=== PATIENT | female | born 1955 | race Caucasian/White ===

== ENCOUNTER → 2018-04-24 | Outpatient (CLI) | payer OTHER ==
[2016-05-12 21:09] VITALS: BP 100/68
[~2018-04-24] MED LIST: ASCO100T4 PO; ASPI-630 PO; CALC500T54 PO; CHOL200074 PO; CYAN100T PO; CYCL1DRO EACHEYE; DROS1TAB PO; LEVO0.5P MC; MULT-496 PO; OMEG500C PO; VITA100T7 PO
--- NOTE | 2018-04-24 13:05 | RAD ---
EXAM: Dual energy x-ray absorptiometry (DEXA). HISTORY: Postmenopausal female presents for osteoporosis screening. COMPARISON: None. TECHNIQUE: Dual energy x-ray absorptiometry of the lumbar spine and right hip was performed. Calculation of bone mineral density based on standard deviations above or below the expected young adult normal value (T-score) was completed. FINDINGS: The average bone mineral density in the 1st through 4th lumbar vertebrae is 1.207 g/cmxcm, corresponding with a T-score of 0.2. The average total bone mineral density in the right femoral intertrochanteric region is 0.693 g/cmxcm, corresponding with a T-score of -1.4. The bone mineral density cannulated for the total right hip corresponds with a T-score of -0.1. IMPRESSION: 1. Normal bone mineral density measured for the lumbar spine and total right hip. 2. Osteopenia measured at the right femoral intertrochanteric region. Note: Definitions established by the World Health Organization: 1. Normal: T-score is -1.0 or above. 2. Osteopenia: T-score is between -1.0 and -2.5 . 3. Osteoporosis: T-score is -2.5 or below. Electronically signed by: Jenny Mark MD (04/24/2018 1:02 PM) [place] [id number]
== END | disposition home or self-care (01) ==
LOC: DXRAD 10:41
PROVIDERS: ATTEND Nurse Practitioner Family
DX: Z13.820 Encounter for screening for osteoporosis (principal); M85.89 Other specified disorders of bone density and structure, multiple sites; Z78.0 Asymptomatic menopausal state
CPT/HCPCS: 77080

== ENCOUNTER → 2018-09-03 | Outpatient (CLI) | payer OTHER ==
[2016-05-12 21:09] VITALS: BP 100/68
--- NOTE | 2018-09-03 17:29 | RAD ---
EXAM: PA and Lateral Views of the Chest DATE: 09/03/2018 3:10 PM INDICATION: SHORTNESS OF BREATH COMPARISON: No Prior FINDINGS: The heart is not enlarged. Mediastinal and hilar contours are normal. Nodular right infrahilar patchy parenchymal opacities are seen, possibly developing consolidation or atelectasis. Radiographic follow-up to resolution is recommended. No pleural effusion or pneumothorax. IMPRESSION: 1. Nodular and patchy right infrahilar parenchymal opacities are seen, possibly developing consolidation or atelectasis. Radiographic follow-up to resolution is recommended to exclude solid mass. Electronically signed by: Erwin Echeverria MD (09/03/2018 5:25 PM) [id number]
--- NOTE | 2018-09-03 17:30 | RAD ---
EXAM: AP pelvis, AP and crosstable lateral views of the right hip DATE: 09/03/2018 12:00 AM INDICATION: RIGHT HIP PAIN WITH PELVIC PAIN COMPARISON: No Prior FINDINGS: No evidence of acute fracture or dislocation. Borderline bilateral coxa valga. Moderate superior right hip joint space narrowing with marginal femoral head/neck junction osteophytes. Left hip joint spaces are preserved with small marginal acetabular and femoral head/neck junction osteophytes. Ossification adjacent to the right anterior superior iliac spine likely from old/remote injury. IMPRESSION: No evidence of acute fracture or dislocation. Bilateral hip joint osteoarthritis Electronically signed by: Erwin Echeverria MD (09/03/2018 5:27 PM) [id number]
== END | disposition home or self-care (01) ==
LOC: PMG 15:00
PROVIDERS: ATTEND Physician Assistant Medical
DX: M16.0 Bilateral primary osteoarthritis of hip (principal); M25.751 Osteophyte, right hip; R91.8 Other nonspecific abnormal finding of lung field
CPT/HCPCS: 71046; 73502

== ENCOUNTER → 2018-09-11 | Outpatient (CLI) | payer OTHER ==
[2016-05-12 21:09] VITALS: BP 100/68
--- NOTE | 2018-09-11 08:49 | RAD ---
CT CHEST WO CONTRAST Indication: Shortness of breath for 3 weeks, abnormal chest x-ray Technique: Noncontrast CT imaging was performed of the chest, multiplanar reconstruction images submitted. One or more of the following individualized dose reduction techniques were utilized for this examination: 1. Automated exposure control 2. Adjustment of the mA and/or kV according to patient size 3. Use of iterative reconstruction technique. Contrast: None Comparison: May 21, [address] and recent radiograph September 03, 2018 Findings: Comparing with the previous CT exam, there is increased consolidation with air bronchograms as well as component of bronchiectasis of the right middle lobe. There is no pleural or pericardial effusion, pneumothorax. Major airways are patent. Thoracic aortic caliber is within normal limits. There is again some heterogeneous density of the more medial right breast, in part present previously although questionably somewhat more dense than previously. There is again biapical fibrotic change although somewhat progressed since the previous 2015 exam. There is a somewhat more nodular focus of density of the right upper lobe near the apex such as seen on axial images 14 and 15 greater than previously, nodule on axial image 15 about 0.9 cm. Small 0.3 cm left lower lobe nodule axial image 57 is new. Tiny 0.2 cm right lower lobe nodule axial image 48 is probably new, also 0.3 cm right lower lobe nodule axial image 47 likely new. There are some mediastinal lobes, not considered significantly enlarged based on short axis dimensions although more prominent than the previous exam. For example precarinal node measures about 0.7 cm, previously not seen. IMPRESSION: 1. There is increased consolidation with air bronchograms and bronchiectasis of the right middle lobe, may be underlying mild chronic component. Short-term follow-up such as in 3 months after treatment is advised. There is also right upper lobe nodule near the apex more prominent than 2015 exam for which attention on follow-up is advised, some other smaller nodules as stated. 2. There are mediastinal nodes not considered to be significantly enlarged although larger than 2015 also for which attention on follow-up advised. 3. There is heterogeneous density of the more medial right breast, somewhat more dense than previous 2015 exam although size fairly similar better evaluated by mammography and ultrasound if needed if this has not been performed, Electronically signed by: Kayden Cristobal MD (09/11/2018 8:46 AM) [id number]
== END | disposition home or self-care (01) ==
LOC: CT 07:15
PROVIDERS: ATTEND Physician Assistant Medical
DX: J47.9 Bronchiectasis, uncomplicated (principal); R59.0 Localized enlarged lymph nodes; R91.1 Solitary pulmonary nodule
CPT/HCPCS: 71250

== ENCOUNTER → 2018-11-16 | Outpatient (CLI) | payer OTHER ==
[2016-05-12 21:09] VITALS: BP 100/68
--- NOTE | 2018-11-16 10:30 | RAD ---
EXAM: CT Chest without IV contrast CLINICAL HISTORY: FOLLOW UP PULMONARY NODULES SEEN ON PREV CT COMPARISON: CT 09/11/2018, 05/21/2015 TECHNIQUE: CT of the chest without intravenous contrast. Axial, coronal and sagittal reformatted images were generated. ---PQRS compliance statement - One or more of the following individualized dose reduction techniques were utilized for this study: 1. Automated exposure control 2. Adjustment of the mA and/or kV according to patient size 3. Use of iterative reconstruction technique--- FINDINGS: Lack of intravenous contrast limits evaluation of solid organs, vasculature, and lymph nodes. Chest: Heart is not enlarged. Coronary artery calcifications are seen. No pleural effusion or pneumothorax. No axillary lymphadenopathy is seen. Prominent mediastinal and hilar lymph nodes are seen although not enlarged by size criteria. Linear middle lobe parenchymal opacities with associated bronchiectasis is seen, possibly from associated scarring. This is grossly stable to 09/11/2018. Biapical fibrotic changes are stable. Nodular opacity in the right lung apex continues to measure approximately 9 mm, stable to 09/11/2018. A 4 mm left lower lobe lung nodule has mildly increased in size compared to 09/11/2018 (image 59). Associated tree-in-bud opacities are seen with a more peripheral 3 mm lung nodule that is pleural-based in the left lower lobe (image 59) The previously seen right lower lobe lung nodules are not convincingly seen on today's examination. Medial right breast density is stable. Visualized Upper abdomen: Nonobstructing left lower pole renal calculus is seen. Upper abdomen is otherwise unremarkable. Bones: Degenerative changes of the spine are seen. IMPRESSION: 1. Left lower lobe lung nodule is mildly increased in size now measuring 4 mm however associated tree-in-bud nodular opacities are seen which may be seen with inflammatory process. Recommend follow-up CT in 3-6 months to further evaluate. 2. Right apical lung nodule is stable in size. The right lower lobe lung nodules are not well delineated on today's exam. 3. Minimal parenchymal opacities are stable favor atelectasis and scarring. 4. Medial right breast density is stable and recommend mammography/ultrasound if not recently performed. 5. Nonobstructing left lower pole renal calculus. Electronically signed by: Erwin Echeverria MD (11/16/2018 10:26 AM) [facility]
== END | disposition home or self-care (01) ==
LOC: CT 08:19
PROVIDERS: ATTEND Internal Medicine Pulmonary Disease
DX: R91.1 Solitary pulmonary nodule (principal); R91.8 Other nonspecific abnormal finding of lung field; J98.11 Atelectasis; I25.10 Atherosclerotic heart disease of native coronary artery without angina pectoris; N20.0 Calculus of kidney
CPT/HCPCS: 71250

== ENCOUNTER 2019-01-02 15:57 | Emergency (ER) | payer OTHER ==
[~2019-01-02] VITALS: Ht 162.6 cm; Wt 54.4 kg
--- NOTE | 2019-01-02 16:15 | PHYS DOC ---
Past History Past Medical History: IBS, Other Past Surgical History: Tonsillectomy, Other Alcohol Use: None Drug Use: None Adult General Chief Complaint Chief Complaint: WRIST PAIN [facility] HPI Patient is a 63 year old right-handed female who presents with complaining of injury to right wrist. Patient states around 1300 today her dog hit and injured her right wrist. Patient states she applied ice on her disease that makes her pain even worse. Patient rated her pain 9/10 and denies focal neuro deficit and other injuries. Review of Systems Review of Systems Constitutional: Denies fever or chills [] Eyes: Denies change in visual acuity, redness, or eye pain [] HENT: Denies nasal congestion or sore throat [] Respiratory: Denies cough or shortness of breath [] Cardiovascular: No additional information not addressed in HPI [] GI: Denies abdominal pain, nausea, vomiting, bloody stools or diarrhea [] : Denies dysuria or hematuria [] Musculoskeletal: Denies back pain, reports joint pain [] Integument: Denies rash or skin lesions [] Neurologic: Denies headache, focal weakness or sensory changes [] Endocrine: Denies polyuria or polydipsia [] All other systems were reviewed and found to be within normal limits, except as documented in this note. Current Medications Current Medications Current Medications Medications (Trade) Dose Ordered Sig/[facility] Start Time Stop Time Status Last Admin Dose Admin Ketorolac Tromethamine (Toradol Im) 60 mg 1X ONCE 01/02/19 16:30 01/02/19 16:31 Allergies Allergies Allergies Coded Allergies Type Severity Reaction Last Updated Verified Sulfa (Sulfonamide Antibiotics) Allergy Unknown 05/12/15 Yes Physical Exam Physical Exam Constitutional: Well developed, well nourished, mild acute distress, non-toxic appearance. [] HENT: Normocephalic, atraumatic Eyes: PERRLA, EOMI, conjunctiva normal, no discharge. [] Neck: Normal range of motion, no tenderness, supple, no stridor. [] Cardiovascular:Heart rate regular rhythm, no murmur [] Lungs & Thorax: Bilateral breath sounds clear to auscultation [] Skin: Warm, dry, no erythema, no rash. [] Back: No tenderness, no CVA tenderness. [] Extremities: Right wrist with tenderness and edema in ulnar side without focal neuro deficit, painful range of motion. Neurologic: Alert and oriented X 3, normal motor function, normal sensory function, no focal deficits noted. [] Psychologic: Affect normal, judgement normal, mood normal. [] EKG EKG [] Radiology/Procedures Radiology/Procedures [address] [address] IMAGING REPORT Signed PATIENT: ALEM HERNANDEZ ACCOUNT: [id number] : 1955 LOCATION: ER AGE: 63 SEX: F EXAM STATUS: REG ER ORD. PHYSICIAN: KENN SIMPSON MD REASON: painful lump rt wrist ulna side PROCEDURE: WRIST 3V RIGHT EXAM: PA, oblique and lateral views of the right wrist DATE: 01/02/2019 4:05 PM INDICATION: playing with dog and hit her hand/wrist at 1pm today painful lump on posterior lat ulna side COMPARISON: No Prior FINDINGS: No evidence of acute fracture or dislocation. Mild radiocarpal, thumb CMC and MCP joint degenerative changes are seen with small osteophytes and joint space narrowing. Decreased bone mineral density. Soft tissue swelling at the ulnar aspect of the wrist. IMPRESSION: 1. Soft tissue swelling most prominent overlying the distal ulna/ulnar styloid without evidence for acute fracture or dislocation. 2. Decreased bone mineral density. 3. Multifocal degenerative changes. Electronically signed by: Erwin Mcnair MD (01/02/2019 4:31 PM) [id number] DICTATED AND SIGNED BY: ERWIN MCNAIR MD DATE: 01/02/19 [id number] CC: KENN SIMPSON MD; HELADIO KEMP ~ Course & Med Decision Making Course & Med Decision Making Pertinent Imaging studies reviewed. (See chart for details) discharge: I've spoken with the patient and/or caregivers. I've explained the patient's condition, diagnosis and treatment plan based on information available to me at this time. I've answered the patient's and/or caregivers questions and addressed any concerns. The patient and/or caregivers have a good understanding the patient's diagnosis, condition and treatment plan as can be expected at this point. Vital signs have been stabilized. The patient's condition is stable for discharge from the emergency department. The patient will pursue further outpatient evaluation with her primary care provider or other designated consulting physician as outlined in the discharge instructions. Patient and/or caregivers are agreeable to this plan of care and follow-up instructions have been explained in detail. The patient and/or caregivers have received these instructions in written format and expressed understanding of these discharge instructions. The patient and her caregivers are aware that if any significant change in condition or worsening of symptoms should prompt him to immediately return to this of the closest emergency department. If an emergent department is not readily available I would encourage him to call 911. Dragon Disclaimer Dragon Disclaimer This electronic medical record was generated, in whole or in part, using a voice recognition dictation system. Departure Departure: Impression: Primary Impression: Contusion of right wrist, initial encounter Disposition: HOME, SELF-CARE (at 1646) Condition: IMPROVED Referrals: HELADIO KEMP (PCP) Patient Instructions: Contusion Additional Instructions: Apply ice the affected area Follow-up with your primary care physician in 3-5 days Return to ER if not getting better Scripts Hydrocodone Bit/Acetaminophen (NORCO 5-325 TABLET) 1 Each Tablet 1 TAB PO PRN Q6HRS PRN for PAIN, #14 TAB 0 Refills Prov: KENN SIMPSON MD 01/02/19 KENN SIMPSON MD Jan 02, 2019 16:15
[2019-01-02] MEDS ORDERED: KETOROLAC 60 MG/2 ML VIAL. IM ONE (16:30)
--- NOTE | 2019-01-02 16:34 | RAD ---
EXAM: PA, oblique and lateral views of the right wrist DATE: 01/02/2019 4:05 PM INDICATION: playing with dog and hit her hand/wrist at 1pm today painful lump on posterior lat ulna side COMPARISON: No Prior FINDINGS: No evidence of acute fracture or dislocation. Mild radiocarpal, thumb CMC and MCP joint degenerative changes are seen with small osteophytes and joint space narrowing. Decreased bone mineral density. Soft tissue swelling at the ulnar aspect of the wrist. IMPRESSION: 1. Soft tissue swelling most prominent overlying the distal ulna/ulnar styloid without evidence for acute fracture or dislocation. 2. Decreased bone mineral density. 3. Multifocal degenerative changes. Electronically signed by: Erwin Echeverria MD (01/02/2019 4:31 PM) [id number]
[2019-01-02] MEDS ORDERED: HYDR-3165 PO (16:48)
[2019-01-02 16:50] VITALS: BP 111/70
== END 2019-01-02 16:51 | disposition home or self-care (01) ==
LOC: ER 15:57
DX: S60.211A Contusion of right wrist, initial encounter (principal); K58.9 Irritable bowel syndrome, unspecified; Z88.2 Allergy status to sulfonamides; W54.1XXA Struck by dog, initial encounter; Y93.89 Activity, other specified; Y92.89 Other specified places as the place of occurrence of the external cause; Y99.8 Other external cause status
CPT/HCPCS: 29125; 73110; 96372; 99283; J1885

== ENCOUNTER 2019-02-12 10:02 | Emergency (ER) | payer OTHER ==
[~2019-02-12] VITALS: Ht 162.6 cm; Wt 54.4 kg
[~2019-02-12 10:02] MED LIST changes: -CYAN100T PO; +CYAN100T2 PO; +HYDR-3165 PO
--- NOTE | 2019-02-12 10:35 | PHYS DOC ---
Past History Past Medical History: Hyperthyroid, IBS Past Surgical History: Hysterectomy, Tonsillectomy Alcohol Use: None Drug Use: None Adult General Chief Complaint Chief Complaint: FACE PAIN HPI HPI 63-year-old female presents after fall. The patient was out jogging when she caught her toe and tripped on the concrete. She fell onto both hands outstretched and then hit her face on the ground. She went to a local elementary school and had her hands cleaned up by the school nurse. She then recommended she come to the hospital for evaluation of her front teeth and nose. The patient has had bleeding in her mouth she has an abrasion on her lower lip and to feel some bleeding on the inside of her upper mouth. She denies feeling any loose teeth. She also has a swollen nose. She had quite a bit of bleeding but that has stopped. Patient denies losing consciousness. She denies headache or dizziness. Review of Systems Review of Systems Constitutional: Denies fever or chills [] Eyes: Denies change in visual acuity, redness, or eye pain [] HENT: Facial pain[] Respiratory: Denies cough or shortness of breath [] Cardiovascular: No additional information not addressed in HPI [] GI: Denies abdominal pain, nausea, vomiting, bloody stools or diarrhea [] : Denies dysuria or hematuria [] Musculoskeletal: Denies back pain or joint pain [] Integument: Denies rash or skin lesions [] Neurologic: Denies headache, focal weakness or sensory changes [] Endocrine: Denies polyuria or polydipsia [] All other systems were reviewed and found to be within normal limits, except as documented in this note. Allergies Allergies Allergies Coded Allergies Type Severity Reaction Last Updated Verified Sulfa (Sulfonamide Antibiotics) Allergy Unknown 05/12/15 Yes Physical Exam Physical Exam Constitutional: Well developed, well nourished, no acute distress, non-toxic appearance. [] HENT: Normocephalic, bilateral external ears normal, oropharynx moist, nose swollen. Abrasion of the lower lip. Tooth #8 and 9 with blood around the base, not loose, frenulum intact[] Eyes: PERRLA, EOMI, conjunctiva normal, no discharge. [] Neck: Normal range of motion, no tenderness, supple, no stridor. [] Cardiovascular:Heart rate regular rhythm, no murmur [] Lungs & Thorax: Bilateral breath sounds clear to auscultation [] Abdomen: Bowel sounds normal, soft, no tenderness, no masses, no pulsatile masses. [] Skin: Abrasions to bilateral palms with a clean dry dressing[] Back: No tenderness, no CVA tenderness. [] Extremities: No tenderness, no cyanosis, no clubbing, ROM intact, no edema. [] Neurologic: Alert and oriented X 3, normal motor function, normal sensory function, no focal deficits noted. [] Psychologic: Affect normal, judgement normal, mood normal. [] Current Patient Data Vital Signs Vital Signs Date Time Temp Pulse Resp B/P (MAP) Pulse Ox O2 Delivery O2 Flow Rate FiO2 02/12/19 10:10 98.2 64 16 99 Room Air EKG EKG [] Radiology/Procedures Radiology/Procedures [] Impressions: Facial bones, 3 views, 02/12/2019: HISTORY: Fall, nasal injury No acute fracture is identified. The paranasal sinuses are clear. IMPRESSION: No significant abnormality is detected. Electronically signed by: Miles Torres MD (02/12/2019 11:04 AM) [facility] DICTATED AND SIGNED BY: MILES TORRES MD DATE: 02/12/19 1104 CC: AMBAR PASCAL DO; HELADIO KEMP Course & Med Decision Making Course & Med Decision Making Pertinent Labs and Imaging studies reviewed. (See chart for details) The patient does not have any fractures. I have advised that she see a dentist just to check on her teeth. She has no other significant injuries. She is stable for discharge at this time. [] Dragon Disclaimer Dragon Disclaimer This electronic medical record was generated, in whole or in part, using a voice recognition dictation system. Departure Departure: Impression: Primary Impression: Fall injury while running Additional Impressions: Contusion, nose Contusion, lips Disposition: 01 HOME, SELF-CARE Condition: STABLE Referrals: HELADIO KEMP (PCP) Patient Instructions: Contusion, [id number] Problem Qualifiers Additional Impressions: Contusion, nose Encounter type: initial encounter Qualified Codes: S00.33XA - Contusion of nose, initial encounter Contusion, lips Encounter type: initial encounter Qualified Codes: S00.531A - Contusion of lip, initial encounter AMBAR PASCAL DO Feb 12, 2019 10:35
--- NOTE | 2019-02-12 11:06 | RAD ---
Facial bones, 3 views, 02/12/2019: HISTORY: Fall, nasal injury No acute fracture is identified. The paranasal sinuses are clear. IMPRESSION: No significant abnormality is detected. Electronically signed by: Miles Torres MD (02/12/2019 11:04 AM) [facility]
[2019-02-12 11:41] VITALS: BP 141/84
== END 2019-02-12 11:42 | disposition home or self-care (01) ==
LOC: ER 10:02
DX: S00.531A Contusion of lip, initial encounter (principal); S00.33XA Contusion of nose, initial encounter; S60.512A Abrasion of left hand, initial encounter; S60.511A Abrasion of right hand, initial encounter; E03.9 Hypothyroidism, unspecified; K58.9 Irritable bowel syndrome, unspecified; Z88.2 Allergy status to sulfonamides; W01.198A Fall on same level from slipping, tripping and stumbling with subsequent striking against other object, initial encounter; Y93.02 Activity, running; Y92.89 Other specified places as the place of occurrence of the external cause; Y99.8 Other external cause status
CPT/HCPCS: 70150; 99283

== ENCOUNTER → 2019-02-13 | Outpatient (CLI) | payer OTHER ==
[2019-02-12 11:41] VITALS: BP 141/84
--- NOTE | 2019-02-13 08:41 | RAD ---
EXAM: Abdomen sonogram. HISTORY: Elevated alkaline phosphatase. TECHNIQUE: Sonographic imaging of the abdomen was performed. COMPARISON: None. FINDINGS: The liver is normal in size. No focal hepatic lesion is seen. The gallbladder is unremarkable. The common bile duct is normal in caliber. The right kidney is partially obscured due to bowel gas. The visualized portions of the right kidney are unremarkable. The pancreas and inferior vena cava are unremarkable. The aorta is not assessed. IMPRESSION: Relatively unremarkable abdomen sonogram, with limited evaluation of the right kidney due to bowel gas. Electronically signed by: Jenny Mark MD (02/13/2019 8:38 AM) [id number]
== END | disposition home or self-care (01) ==
LOC: US 07:22
PROVIDERS: ATTEND Physician Assistant Medical
DX: R74.8 Abnormal levels of other serum enzymes (principal)
CPT/HCPCS: 76705

== ENCOUNTER → 2019-09-06 | Outpatient (CLI) | payer OTHER ==
--- NOTE | 2019-09-06 13:33 | RAD ---
EXAM: Pelvis and right hip, 3 views. HISTORY: Pain. COMPARISON: 09/03/2018 FINDINGS: A frontal view of the pelvis and frontal and frog-leg views the right hip are obtained. There is right hip joint space narrowing with degenerative subchondral sclerosis, subchondral cyst formation and marginal femoral and acetabular spurring. There is also marginal spurring involving the left hip. No fracture, dislocation or subluxation is seen. There are punctate radiodense foreign bodies overlying the lumbosacral junction, likely postoperative. IMPRESSION: 1. Moderate right and mild left hip osteoarthritis. 2. No acute osseous finding. Electronically signed by: Jenny Mark MD (09/06/2019 1:30 PM) [id number]
== END | disposition home or self-care (01) ==
LOC: DXRAD 10:57
PROVIDERS: ATTEND Physician Assistant Medical
DX: M16.12 Unilateral primary osteoarthritis, left hip (principal)
CPT/HCPCS: 73502

== ENCOUNTER → 2020-03-27 | Outpatient (CLI) | payer MEDICARE, OTHER ==
--- NOTE | 2020-03-27 12:26 | RAD ---
LUMBAR SPINE MIN 4V 03/27/2020 12:00 AM Indication: Low back pain COMPARISON: Pelvis radiograph 09/06/2019 TECHNIQUE: 5 views of the lumbar spine are provided. Findings: Alignment of the lumbar spine is normal. There is interbody fusion at L5-S1 with near complete incorporation. Vertebral body heights are maintained. No acute fracture is identified. Mild disc height loss is identified at L2-L3 with mild intramarginal osteophytosis. No definite fracture is visualized. Mild facet arthropathy. Transverse processes are intact. Visualized portions of the sacrum and sacroiliac joints are intact. Nonobstructive bowel gas pattern. Visualized portions of the sacrum appear intact. Impression: Interbody fusion at L5-S1 without acute fracture or malalignment. Electronically signed by: Nida Londono MD (03/27/2020 12:23 PM) [facility]
--- NOTE | 2020-03-27 12:27 | RAD ---
FINGER(S) RIGHT 03/27/2020 12:00 AM INDICATION: Right middle finger swelling COMPARISON: None available. TECHNIQUE: 2 views of the right hand third digit are provided. FINDINGS/ IMPRESSION: 1. Ossific fragment is identified along the dorsal margin of the distal interphalangeal joint of the third digit. Findings may represent an ossific body within the joint space versus an avulsion fracture. Correlate with point tenderness. 2. Moderate degenerative changes involving the distal interphalangeal joint of the second digit and mild interphalangeal joint osteophytosis of the third and fourth digits. Electronically signed by: Nida Londono MD (03/27/2020 12:24 PM) [facility]
== END | disposition home or self-care (01) ==
LOC: DXRAD 11:53
PROVIDERS: ATTEND Physician Assistant Medical
DX: M47.816 Spondylosis without myelopathy or radiculopathy, lumbar region (principal); M19.041 Primary osteoarthritis, right hand
CPT/HCPCS: 72110; 73140

== ENCOUNTER → 2020-06-25 | Outpatient (CLI) | payer MEDICARE, OTHER ==
[~2020-06-25] MED LIST changes: -CYAN100T2 PO; +CYAN100T21 PO
--- NOTE | 2020-06-25 16:22 | RAD ---
DATE: 06/25/2020 9:49 AM EXAM: MAMMO TAYLOR SCREENING BILATERAL HISTORY: Screening COMPARISON: 06/13/2019 Bilateral CC and MLO views of the breasts were performed. Bilateral breast tomosynthesis was performed in CC and MLO projections. This study was interpreted with the benefit of Computerized Aided Detection (CAD). FINDINGS: Breast Density: SCATTERED The breast parenchyma shows scattered fibroglandular densities. Breast parenchyma level B No suspicious masses, microcalcifications or architectural distortion is present to suggest malignancy in either breast. The visualized axillae are unremarkable. IMPRESSION: No mammographic evidence of malignancy. BI-RADS CATEGORY: 1 NEGATIVE RECOMMENDED FOLLOW-UP: 12M 12 MONTH FOLLOW-UP Annual screening mammography is recommended, unless clinically indicated sooner based on symptoms or change in physical exam. PQRS compliance statement: Patient information was entered into a reminder system with a target due date for the next mammogram. Mammography is a sensitive method for finding small breast cancers, but it does not detect them all and is not a substitute for careful clinical examination. A negative mammogram does not negate a clinically suspicious finding and should not result in delay in biopsying a clinically suspicious abnormality. "Our facility is accredited by the [employer] Mammography Program."
== END | disposition home or self-care (01) ==
LOC: MAMMO 09:43
PROVIDERS: ATTEND Physician Assistant Medical
DX: Z12.31 Encounter for screening mammogram for malignant neoplasm of breast (principal)
CPT/HCPCS: 77063; 77067

== ENCOUNTER → 2020-08-17 | Outpatient (CLI) | payer MEDICARE, OTHER ==
--- NOTE | 2020-08-17 09:16 | RAD ---
Examination: CT of the abdomen pelvis without contrast HISTORY: History of right lower quadrant pain, right flank pain COMPARISON: None available TECHNIQUE: Axial CT images of the abdomen pelvis were performed without contrast. Coronal and sagittal reformats are performed. Exposure: One or more of the following individualized dose reduction techniques were utilized for this examination: 1. Automated exposure control 2. Adjustment of the mA and/or kV according to patient size 3. Use of iterative reconstruction technique FINDINGS: Partially visualized patchy airspace opacities identified middle lobe, left lingula the lung likely atelectasis or infiltrates. No evidence of free air identified in the abdomen The evaluation of the solid organs is limited due to lack of IV contrast. The evaluation of bowel is limited due to lack of oral contrast. The visualized noncontrasted liver, spleen, adrenals grossly appears unremarkable. Gallbladder is mildly distended The visualized pancreas grossly appears unremarkable. The stomach is mildly distended. The small bowel is nondilated. The appendix is normal Feces and gas noted in the colon Few scattered colonic diverticulosis Urinary bladder is mildly distended 3 mm calculus identified in the left kidney. Moderate degenerative changes lower lumbar spine. Moderate degenerative disease identified in the bilateral hip joints. Bony fusion identified in the lower lumbar spine at L5 vertebral level. IMPRESSION: 1. Punctate 3 mm calculus left kidney. 2. Normal-appearing appendix. 3. Partially visualized patchy airspace opacities identified in the right middle lobe, left lingula of the lung likely atelectasis or infiltrates. Electronically signed by: Derek Bell MD (08/17/2020 9:13 AM) [id number]
[2020-08-17 10:07] LABS: BASO % 0 % (0-3); EOS # 0.1 x10^3/uL (0.0-0.7); EOS % 1 % (0-3); HEMATOCRIT 43.5 % (36.0-47.0); LYMPH # 1.6 x10^3/uL (1.0-4.8); LYMPH % 32 % (24-48); MEAN CORPUSCULAR HEMOGLOBIN 30 pg (25-35); MEAN CORPUSCULAR HGB CONC 32 g/dL (31-37); MEAN CORPUSCULAR VOLUME 92 fL (79-100); MONO # 0.4 x10^3/uL (0.0-1.1); MONO % 7 % (0-9); NEUT # 3.1 x10^3uL (1.8-7.7); NEUT % 59 % (31-73); PLATELET COUNT 273 x10^3/uL (140-400); RED BLOOD COUNT 4.75 x10^6/uL (3.50-5.40); RED CELL DISTRIBUTION WIDTH 12.9 % (11.5-14.5); WHITE BLOOD COUNT 5.2 x10^3/uL (4.0-11.0)
[2020-08-17 10:08] LABS: ALBUMIN 3.9 g/dL (3.4-5.0); CALCIUM 9.5 mg/dL (8.5-10.1); CREATININE 0.7 mg/dL (0.6-1.0); POTASSIUM 3.9 mmol/L (3.5-5.1); TOTAL BILIRUBIN 0.5 mg/dL (0.2-1.0); TOTAL PROTEIN 7.7 g/dL (6.4-8.2)
[2020-08-17 13:13] LABS: BACTERIA,URINE 0 /HPF (0-FEW); BILIRUBIN,URINE NEG (NEG); CLARITY,URINE CLEAR; COLOR,URINE YELLOW; GLUCOSE,URINE NEG (NEG); NITRITE,URINE NEG (NEG); RBC,URINE OCC /HPF (0-2); UROBILINOGEN,URINE 0.2 mg/dL (0.2 mg/dL); WBC,URINE OCC /HPF (0-4)
== END | disposition home or self-care (01) ==
LOC: PMG 08:16
PROVIDERS: ATTEND Physician Assistant Medical
DX: K57.30 Diverticulosis of large intestine without perforation or abscess without bleeding (principal); N32.89 Other specified disorders of bladder; N20.0 Calculus of kidney; M47.816 Spondylosis without myelopathy or radiculopathy, lumbar region; M16.0 Bilateral primary osteoarthritis of hip
CPT/HCPCS: 36415; 74176; 80053; 81001; 85025

== ENCOUNTER → 2020-12-03 | Outpatient (CLI) | payer MEDICARE, OTHER ==
[~2020-12-03] MED LIST changes: +IOHEXOL 240 MG/ML 50ML VIAL. ONE
[2020-12-03 12:40] LABS: CREATININE 0.6 mg/dL (0.6-1.0)
[2020-12-03] MEDS: IOHEXOL 300 MG/ML 75 ML VIAL. IV ONE (13:04)
[2020-12-03] MEDS: IOHEXOL 240 MG/ML 50ML VIAL. PO ONE (13:05)
--- NOTE | 2020-12-03 14:56 | RAD ---
EXAM: Abdomen and pelvis CT with intravenous contrast. HISTORY: Pain. TECHNIQUE: Computed tomographic images of the abdomen and pelvis were obtained following the administ ration of intravenous contrast. Multiplanar reformatting was performed. *One or more of the following individualized dose reduction techniques were utilized for this examina tion: 1. Automated exposure control. 2. Adjustment of the mA and/or kV according to patient size. 3. Use of iterative reconstruction technique. COMPARISON: 08/17/2020. FINDINGS: Evaluation of the lower thorax demonstrates annular and right middle lobe pleural parenchym al scarring and right middle lobe bronchiectasis. There is also suspected atelectasis or scarring wit hin the lateral right lung base. No suspicious hepatic lesion is seen. The gallbladder, pancreas, spl een and adrenal glands are unremarkable. There is mild left renal pelvicaliectasis. There is no appen dicitis. There is no bowel obstruction. There are few sigmoid diverticula. There is no diverticulitis . The bladder is unremarkable. The uterus is absent. The aorta is normal in caliber. There is no lymp hadenopathy. There is no suspicious osseous lesion. There is an incidental transitional lumbosacral s egment, considered S1 for this dictation. There is fusion at L5-S1. IMPRESSION: 1. No acute abdominal or pelvic finding. 2. Sigmoid diverticulosis. 3. Mild stable left renal pelvicaliectasis. The previously described left renal stone is not seen, po ssibly obscured due to the presence of intravenous contrast. Electronically signed by: Jenny Mark MD (12/03/2020 2:54 PM) [id number]
== END ==
LOC: CT 11:47
PROVIDERS: ATTEND Internal Medicine Gastroenterology
DX: K57.30 Diverticulosis of large intestine without perforation or abscess without bleeding (principal); N13.30 Unspecified hydronephrosis
CPT/HCPCS: 36415; 74177; 82565; 84520; Q9966; Q9967

== ENCOUNTER → 2021-01-04 | Outpatient (CLI) | payer MEDICARE, OTHER ==
[~2021-01-04] MED LIST changes: -IOHEXOL 240 MG/ML 50ML VIAL. ONE
--- NOTE | 2021-01-04 10:42 | RAD ---
EXAMINATION: DG SMALL BOWEL FOLLOW THROUGH 01/04/2021 8:30 AM HISTORY: Right lower quadrant pain COMPARISON: None. TECHNIQUE: An overhead night warehouse manager image was obtained. The patient drank barium and overhead images were ac quired at 20 minute intervals. FINDINGS: The stomach and small bowel are normal in morphology. No small bowel obstruction. Contrast reaches th e colon within 20 minutes. The appendix is normal. There is degenerative joint disease of the right h ip. IMPRESSION: Normal small bowel follow-through. Electronically signed by: Jie Conklin MD (01/04/2021 10:40 AM) [id number]
== END ==
LOC: RAD 08:09
PROVIDERS: ATTEND Internal Medicine Gastroenterology
DX: R10.31 Right lower quadrant pain (principal); M16.11 Unilateral primary osteoarthritis, right hip
CPT/HCPCS: 74250

== ENCOUNTER → 2021-02-15 | Outpatient (CLI) | payer MEDICARE, OTHER ==
--- NOTE | 2021-02-15 16:39 | RAD ---
One view pelvis right hip HISTORY: Right hip pain AP view of the pelvis obtained as well as a frog leg view right hip There is marked degenerative changes right hip with complete loss of joint space superiorly and mild subchondral cyst formation. There is minimal marginal spurring of the left. The remaining visualized osseous structures appear normal. IMPRESSION: Marked degenerative changes of the right hip. No acute findings. Electronically signed by: Zhang Garcia III, MD (02/15/2021 4:37 PM) [facility]
== END ==
LOC: DXRAD 09:34
PROVIDERS: ATTEND Physician Assistant
DX: M16.11 Unilateral primary osteoarthritis, right hip (principal)
CPT/HCPCS: 73501

== ENCOUNTER → 2021-03-29 | Outpatient (CLI) | payer MEDICARE, OTHER ==
[~2021-03-29] MED LIST changes: +IOHEXOL 300 MG/ML 75 ML VIAL. IV ONE
--- NOTE | 2021-03-29 14:27 | RAD ---
EXAM: Chest CT with and without intravenous contrast. HISTORY: Right infrahilar mass on radiograph. TECHNIQUE: Computed tomographic images of the chest were obtained prior to and following the administ ration of intravenous contrast. Multiplanar reformatting was performed. *One or more of the following individualized dose reduction techniques were utilized for this examina tion: 1. Automated exposure control. 2. Adjustment of the mA and/or kV according to patient size. 3. Use of iterative reconstruction technique. COMPARISON: Radiograph dated 03/22/2021. FINDINGS: There is pleural proximal scarring and bronchiectasis within the inferior medial right midd le lobe, corresponding with the site of abnormality on the recent chest radiograph. No suspicious mas s is seen in this location. There is similar less significant. Minimal scarring involving the lingula . There is biapical pleural parenchymal scarring. There is no pleural effusion or pneumothorax. The h eart is normal in size. The aorta is normal in caliber. There is no lymphadenopathy. There is no acut e or suspicious finding involving the osseous structures. IMPRESSION: Inferior medial right middle lobe pleural-parenchymal scarring and bronchiectasis, corre sponding with a finding of concern on the recent chest radiograph. There is also biapical and lingula r pleural-parenchymal scarring. There is no suspicious nodule or mass. Electronically signed by: Jenny Mark MD (03/29/2021 2:25 PM) [id number]
== END ==
LOC: CT 13:23
PROVIDERS: ATTEND Orthopaedic Surgery
DX: J47.9 Bronchiectasis, uncomplicated (principal); J98.4 Other disorders of lung
CPT/HCPCS: 71270; Q9967

== ENCOUNTER → 2021-05-20 | Outpatient (CLI) | payer MEDICARE, OTHER ==
[~2021-05-20] MED LIST changes: -IOHEXOL 300 MG/ML 75 ML VIAL. IV ONE
--- NOTE | 2021-05-21 10:58 | RAD ---
XR HIP (WITH OR WITHOUT PELVIS) RIGHT 1 VIEW History: Reason: RIGHT HIP REPLACEMENT MARCH 2021 / Spl. Instructions: / History: Technique: AP view the pelvis and additional view of the right hip. Comparison: February 15, 2021 Findings: Interval right total hip arthroplasty. No hardware complications. Moderate left hip DJD. No dislocati on. No acute fracture. Vascular calcifications. Impression: 1. Right total hip arthroplasty. No hardware complications. 2. Moderate left hip DJD. Electronically signed by: Gerhard Navarro DO (05/21/2021 10:56 AM) [id number]
== END ==
LOC: RAD 09:30
PROVIDERS: ATTEND Physician Assistant
DX: M16.12 Unilateral primary osteoarthritis, left hip (principal); Z96.641 Presence of right artificial hip joint
CPT/HCPCS: 73501

== ENCOUNTER → 2021-06-29 | Outpatient (CLI) | payer MEDICARE, OTHER ==
--- NOTE | 2021-06-29 15:45 | RAD ---
INDICATION: 65 years of age asymptomatic female patient presents for screening mammography. TECHNIQUE: Full field craniocaudal and mediolateral oblique images of both breasts were obtained usi ng digital technique with tomosynthesis and also analyzed with computer-aided detection software. COMPARISON: Prior mammographic imaging dating back to 06/06/2016 06/08/2018 06/07/2017 06/13/2019. BREAST COMPOSITION: Category B: There are scattered fibroglandular densities. FINDINGS: Benign calcifications are present. The parenchymal pattern appears stable. No suspicious masses, microcalcifications or architectural distortion is present to suggest malignanc y in either breast. The visualized axillae are unremarkable. IMPRESSION: No mammographic evidence of malignancy. RECOMMENDATION: Annual screening mammography is recommended, unless clinically indicated sooner based on symptoms or change in physical exam. BIRADS 2: BENIGN This study was interpreted with the benefit of Computerized Aided Detection (CAD). Patient information is entered into the reminder system with a target due date for the next screening mammogram. Mammography is the most sensitive method for finding small breast cancers, but it does not detect the m all and is not a substitute for careful clinical examination. A negative mammogram does not negate a clinically suspicious finding and should not result in delay in biopsying a clinically suspicious a bnormality. "Our facility is accredited by the [employer] Mammography Program." Electronically signed by: Erwin Echeverria MD (06/29/2021 3:42 PM) [id number]
== END ==
LOC: MAMMO 07:42
PROVIDERS: ATTEND Physician Assistant Medical
DX: Z12.31 Encounter for screening mammogram for malignant neoplasm of breast (principal)
CPT/HCPCS: 77063; 77067

== ENCOUNTER → 2022-03-03 | Outpatient (CLI) | payer MEDICARE, OTHER ==
--- NOTE | 2022-03-03 09:07 | RAD ---
EXAM: XR KNEE_LT 1-2 VIEWS, XR KNEE_AP BILAT STANDING 03/03/2022 8:35 AM CLINICAL INDICATION: Chronic knee pain, history of fall COMPARISON: None TECHNIQUE: Standing AP view of the bilateral knees. Lateral and sunrise views of the left knee. FINDINGS: No acute fracture. Alignment is normal. There is mild tricompartmental joint space narrowi ng with tiny osteophytes. No joint effusion. Mild medial and lateral compartment degenerative joint disease in the right knee. IMPRESSION: Mild tricompartmental degenerative joint disease. Electronically signed by: Jie Conklin MD (03/03/2022 9:04 AM) [id number]
== END ==
LOC: RAD 08:27
PROVIDERS: ATTEND Orthopaedic Surgery Sports Medicine
DX: M17.11 Unilateral primary osteoarthritis, right knee (principal); M25.761 Osteophyte, right knee; M25.762 Osteophyte, left knee
CPT/HCPCS: 73560; 73565